=== PATIENT | male | born 1955 | race Caucasian/White ===

== ENCOUNTER 2016-11-25 05:58 | Emergency (ER) | payer OTHER ==
[2016-11-25] MEDS ORDERED: DUONEB INH ONE (07:31)
[2016-11-25] MEDS ORDERED: SODIUM CHLORIDE 0.9% 1,000 ML ONE (08:42)
== END 2016-11-25 10:42 | disposition home or self-care (01) ==
LOC: ER 05:58
DX: J44.0 Chronic obstructive pulmonary disease with (acute) lower respiratory infection (principal); J20.9 Acute bronchitis, unspecified; F17.200 Nicotine dependence, unspecified, uncomplicated
CPT/HCPCS: 36415; 71020; 80053; 83605; 85025; 87040; 87804; 87880; 94640; 96361; 96374